=== PATIENT | female | born 1980 | race Caucasian/White ===

== ENCOUNTER → 2020-04-30 | Outpatient (CLI) | payer OTHER ==
--- NOTE | 2020-04-30 16:10 | KCIC ---
EXAM: ABDOMINAL ULTRASOUND. HISTORY: Stomach pain. COMPARISON: None. FINDINGS: Sonographic evaluation of the abdomen was performed. The liver appears normal in parenchymal echotexture. Liver measures 16.5 cm There are no focal lesion s. The spleen measures 11.6 cm. The gallbladder is unremarkable without evidence of stones, wall thickening or pericholecystic fluid. There is no sonographic Ritchie sign. The common duct measures 1.8 mm. The visualized portions of the head of the pancreas reveal no abnormality. The right kidney measures 11.9 x 4.0 x 3.8 cm. Cortical thickness and echogenicity are preserved. The re is no hydronephrosis. The left kidney measures 12.4 x 4.2 x 4.6 cm. Cortical thickness and echogen icity are preserved. There is no hydronephrosis. The visualized portions of the abdominal aorta and inferior vena cava are grossly patent and normal i n caliber. IMPRESSION: 1. Unremarkable examination of the abdomen. Electronically signed by: Kari Ferris MD (04/30/2020 4:07 PM) [id number]
== END ==
LOC: KCIC US 09:32
PROVIDERS: ATTEND Nurse Practitioner Gerontology
DX: R10.9 Unspecified abdominal pain (principal)
CPT/HCPCS: 76700